=== PATIENT | male | born 1970 | race Caucasian/White ===

== ENCOUNTER 2019-01-20 16:15 | Emergency (ER) | payer SELFPAY ==
[2019-01-20] MEDS: LIDOCAINE 4% CR TOP (20:03)
[2019-01-20] MEDS: BACITRACIN 0.9 GM OINT TOP (20:03)
[2019-01-20] MEDS: LIDOCAINE 1% (MDV) 20 ML INJ SC (20:46)
== END 2019-01-20 21:36 | disposition home or self-care (01) ==
LOC: FTE 16:15
DX: S91.115A Laceration without foreign body of left lesser toe(s) without damage to nail, initial encounter (principal); F17.210 Nicotine dependence, cigarettes, uncomplicated; W26.8XXA Contact with other sharp object(s), not elsewhere classified, initial encounter; Y92.9 Unspecified place or not applicable
CPT/HCPCS: 12002; 73660; 99283-25